=== PATIENT | male | born 1935 | race Caucasian/White ===

== ENCOUNTER 2019-02-08 18:07 | Emergency (ER) | payer BC, MEDICARE ==
[2019-02-08 18:22] VITALS: BP 170/80; PULSE 77
--- NOTE | 2019-02-08 18:49 | EDM.PDOC ---
ED HPI GENERAL MEDICAL PROBLEM - General Chief Complaint: ENT Problem Stated Complaint: SWELLING IN THROAT, TEETH EXTRACTION Time Seen by Provider: 02/08/19 18:34 Source of Information: Reports: Patient, Family, Provider, RN Notes Reviewed History Limitations: Reports: No Limitations - History of Present Illness INITIAL COMMENTS - FREE TEXT/NARRATIVE: 83-year-old gentleman presents emergency department today sent over from clinic for concerns of airway compromise. He recently underwent dental procedure 3 days prior for extraction of 10 teeth, he also is anticoagulated with Coumadin stop the medication 3 days prior to the procedure restart his Coumadin yesterday. His complaint is that he is developed ecchymosis on his mandible and developed a fluid collection beneath his mandible into the neck. He does not describe any difficulty breathing or difficulty swallowing Jaw Pain Score (Numeric/FACES): 4 - Related Data Allergies Allergy/AdvReac Type Severity Reaction Status Date / Time amoxicillin [Amoxicillin] Allergy Rash Verified 02/08/19 18:24 peanut Allergy Swelling Verified 02/08/19 18:24 Penicillins Allergy Rash Verified 02/08/19 18:24 Sulfa (Sulfonamide Allergy Hives Verified 02/08/19 18:24 Antibiotics) Home Meds: Home Meds Acetaminophen [Acetaminophen Extra Strength] 1,000 mg PO Q6H PRN 02/19/15 [ History] Famotidine [Pepcid] 20 mg PO BID 02/19/15 [History] Warfarin [Coumadin] 5 mg PO SUTUWETHSA 02/19/15 [History] Warfarin [Coumadin] 7.5 mg PO MOFR 02/19/15 [History] Lutein/Min/Vit C/Vit E Acetate [Ocuvite Lutein] 1 tab PO DAILY 02/20/15 [History ] Tadalafil [Cialis] 20 mg PO ASDIRECTED 04/13/16 [History] Cholecalciferol (Vitamin D3) [Vitamin D3] 1,000 units PO DAILY 05/18/16 [History ] Clindamycin HCl [Cleocin] 300 mg PO Q6H 02/08/19 [History] Past Medical History HEENT History: Reports: Cataract Other HEENT History: borderline glaucoma, infected sinus cavity with dizzyness when lying flat Cardiovascular History: Reports: Blood Clots/VTE/DVT Gastrointestinal History: Reports: GERD, Hiatal Hernia Other Gastrointestinal History: BARRETTS ESAPHAGUS Genitourinary History: Reports: Prostate Disorder Other Genitourinary History: PSA 2.3-2.5 "just watching it" Musculoskeletal History: Reports: Arthritis Other Musculoskeletal History: bilat knee pain, right shoulder , right wrist fracture POLYMYAGIA Endocrine/Metabolic History: Reports: Obesity/BMI 30+ Oncologic (Cancer) History: Reports: Prostate Other Oncologic History: skin cancer on nose Other Dermatologic History: mole removed right side of face - Infectious Disease History Infectious Disease History: Reports: Chicken Pox, Measles - Past Surgical History Head Surgeries/Procedures: Reports: None HEENT Surgical History: Reports: Cataract Surgery GI Surgical History: Reports: Chelsey Fundoplication Musculoskeletal Surgical History: Reports: Arthroscopic Knee Social & Family History - Family History Family Medical History: Noncontributory - Tobacco Use Smoking Status *Q: Never Smoker - Caffeine Use Caffeine Use: Reports: Coffee - Recreational Drug Use Recreational Drug Use: No ED ROS GENERAL - Review of Systems Review Of Systems: See Below Constitutional: Reports: No Symptoms HEENT: Reports: Other (neck swelling) Respiratory: Reports: No Symptoms Cardiovascular: Reports: No Symptoms GI/Abdominal: Reports: No Symptoms ED EXAM, GENERAL - Physical Exam Exam: See Below Exam Limited By: No Limitations General Appearance: Alert, WD/WN, No Apparent Distress Throat/Mouth: Normal Inspection, Normal Lips, Normal Teeth, Normal Gums, Normal Oropharynx, Normal Voice, No Airway Compromise Neck: Supple, Non-Tender, Full Range of Motion, Other (fluid collection anterior neck) Skin Exam: Ecchymosis (chin) Course - Vital Signs Last Recorded V/S: Last Vital Signs Temp 97.9 F 02/08/19 18:28 Pulse 77 02/08/19 18:28 Resp 16 02/08/19 18:28 BP 170/80 H 02/08/19 18:28 Pulse Ox 95 02/08/19 18:28 - Orders/Labs/Meds Labs: Laboratory Tests 02/08/19 Range/Units 18:53 PT 12.7 H (9.5-12.0) sec INR 1.19 (0.80-1.20) Departure - Departure Time of Disposition: 19:16 Disposition: Home, Self-Care 01 Condition: Fair Clinical Impression: Hematoma of neck Qualifiers: Encounter type: initial encounter Qualified Code(s): S10.93XA - Contusion of unspecified part of neck, initial encounter - Discharge Information Referrals: PCP,None [Primary Care Provider] - Forms: ED Department Discharge Additional Instructions: Keep regular follow-up appointments with primary care and Coumadin clinic, Please followup with your primary care provider in 3-5 days if not better, please call return to the emergency department with worsening of symptoms. - Assessment/Plan Plan: Assessment Acuity = acute Site and laterality = hematoma neck Etiology = secondary to dental procedure Manifestations = ecchymosis Location of injury = Home Lab values = INR is 1.19 Plan I did discuss options with him he would like to do watchful waiting he will follow up with his primary care and continue to monitor his Coumadin level certainly if he does feel any airway compromise he should return to the emergency department This note was dictated using [employer] voice recognition software please call with any questions on syntax or grammar.
== END 2019-02-08 19:31 | disposition home or self-care (01) ==
LOC: JP.ED 18:07
DX: K91.870 Postprocedural hematoma of a digestive system organ or structure following a digestive system procedure (principal); Z79.899 Other long term (current) drug therapy; Z79.01 Long term (current) use of anticoagulants; Z88.1 Allergy status to other antibiotic agents; Z88.2 Allergy status to sulfonamides; Z98.818 Other dental procedure status
CPT/HCPCS: 36415; 85610; 99282; 99283

== ENCOUNTER 2022-11-29 19:12 | Emergency (ER) | payer MEDICARE ==
[2022-11-29 19:42] VITALS: BP 168/80; PULSE 84
[2022-11-29 20:35] LABS: BASOPHILS ABSOLUTE AUTO 0.05 K/uL (0.00-0.10); BASOPHILS PERCENT AUTO 1.2 % (0.1-1.3); EOSINOPHILS ABSOLUTE AUTO 0.11 K/uL (0.00-0.40); EOSINOPHILS PERCENT AUTO 2.6 % (0.0-5.4); HEMATOCRIT 40.9 % (38.4-49.7); IMMATURE GRAN PERCENT AUTO 0.2 % (0.0-0.7); LYMPHOCYTES ABSOLUTE AUTO 1.15 K/uL (0.8-3.3); LYMPHOCYTES PERCENT AUTO 26.7 % (11.4-47.7); MEAN CORPUSCULAR HEMOGLOBIN 31.7 pg (31.6-35.5); MEAN CORPUSCULAR HGB CONC 34.2 g/dL (31.6-35.5); MEAN CORPUSCULAR VOLUME 92.5 fL (81.4-99.0); MONOCYTES ABSOLUTE AUTO 0.94 K/uL (0.20-0.90); MONOCYTES PERCENT AUTO 21.9 % (3.3-12.6); NEUTROPHILS ABSOLUTE AUTO 2.04 K/uL (1.0-7.6); NEUTROPHILS PERCENT AUTO 47.4 % (40.0-78.1); PLATELET COUNT,PLT 157 K/uL (130-375); RED BLOOD CELL COUNT 4.42 M/uL (4.14-5.76); WHITE BLOOD CELL COUNT,WBC 4.3 K/uL (3.2-11.0)
[2022-11-29 20:36] LABS: IMMATURE GRAN ABSOLUTE AUTO 0.01 K/uL (0.00-0.23)
[2022-11-29 20:52] LABS: INR 2.1; PROTHROMBIN TIME 20.6 sec (9.2-10.6)
== END 2022-11-29 21:50 | disposition home or self-care (01) ==
LOC: JP.ED 19:12
DX: S80.02XA Contusion of left knee, initial encounter (principal); S90.31XA Contusion of right foot, initial encounter; K21.9 Gastro-esophageal reflux disease without esophagitis; E66.9 Obesity, unspecified; Z68.41 Body mass index [BMI] 40.0-44.9, adult; Z88.0 Allergy status to penicillin; Z88.2 Allergy status to sulfonamides; Z91.010 Allergy to peanuts; Z79.01 Long term (current) use of anticoagulants; W18.30XA Fall on same level, unspecified, initial encounter
CPT/HCPCS: 36415; 73562-26-LT; 73562-LT; 73630-26-RT; 73630-RT; 85025; 85610; 99283